=== PATIENT | female | born 1960 | race Caucasian/White ===

== ENCOUNTER 2017-02-05 23:03 | Emergency (ER) | payer OTHER ==
[~2017-02-05] VITALS: Ht 160 cm; Wt 93.0 kg
[~2017-02-05 23:03] MED LIST: ANTIVERT 25 MG25 M1 PO
[2017-02-05 23:17] VITALS: BP 161/94
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
[2017-02-05] MEDS ORDERED: ATORVASTATIN CA20 M1 PO (23:33)
[2017-02-05] MEDS ORDERED: JANUMET XR 50-1 EAC1 PO (23:33)
[2017-02-05] MEDS ORDERED: IBUPROFEN600 M1 PO (23:34)
== END 2017-02-07 ==
LOC: ERH 23:03
DX: S01.01XA Laceration without foreign body of scalp, initial encounter (principal); S30.0XXA Contusion of lower back and pelvis, initial encounter; W19.XXXA Unspecified fall, initial encounter; Y93.K1 Activity, walking an animal; Y92.009 Unspecified place in unspecified non-institutional (private) residence as the place of occurrence of the external cause